=== PATIENT | male | born 1960 | race Hispanic/Latino ===

== ENCOUNTER 2019-12-19 | Emergency (ER) | payer SELFPAY ==
[2019-12-19] MEDS ORDERED: ZESTRIL40 MG PO (15:45)
[2019-12-19] MEDS ORDERED: METFORMIN500 MG PO (15:46)
[2019-12-19 16:32] LABS: HEMATOCRIT 43.6 % (39.0-50.0); HEMOGLOBIN 13.9 g/dl (14.0-18.0); IMMATURE GRANULOCYTES 0.2 % (0.0-5.0); MEAN CELL VOLUME 84.3 fL CALC (80.0-100.0); MEAN CORPUSCULAR HGB 26.9 pG CALC (26.0-32.0); MEAN CORPUSCULAR HGB CONC 31.9 g/L CALC (32.0-36.0); NEUT# 3.12 thou/uL (1.82-7.42); RED BLOOD COUNT 5.17 mill/uL (4.70-6.10); RED CELL DISTRI WIDTH 17.6 % (11.5-15.5)
[2019-12-19 16:55] LABS: ALKALINE PHOSPHATASE 140 u/l (38-126); BILIRUBIN, TOTAL 0.7 mg/dL (0.0-1.4); BUN 27 mg/dL (9-20); BUN/CREATININE RATIO 39 (12-20 (CALC)); CARBON DIOXIDE 20 mmol/l (22-30); CHLORIDE 103 mmol/l (95-108); CREATININE 0.7 mg/dL (0.7-1.3); GFR > 60 ML/MIN (>=60 (CALC)); GFR FOR AFR.AMER. > 60 ML/MIN (>=60 (CALC)); SGOT/AST 27 u/l (17-59); SODIUM 133 mmol/l (137-146); TOTAL PROTEIN 7.6 g/dL (6.3-8.2)
[2019-12-19 16:57] LABS: ANION GAP 16 (6-22 (CALC)); POTASSIUM 5.5 mmol/l (3.5-5.1)
[2019-12-19] MEDS ORDERED: CEPHALEXIN500 MG PO (17:13)
[2019-12-19] MEDS ORDERED: NAPROXEN500 MG PO (17:13)
== END 2019-12-19 17:49 | disposition home or self-care (01) | DRG 603 ==
PROVIDERS: Emergency Medicine
DX: L03.113 Cellulitis of right upper limb (principal); S00.83XA Contusion of other part of head, initial encounter; I10 Essential (primary) hypertension; E11.9 Type 2 diabetes mellitus without complications; F17.210 Nicotine dependence, cigarettes, uncomplicated; W11.XXXA Fall on and from ladder, initial encounter; Y92.009 Unspecified place in unspecified non-institutional (private) residence as the place of occurrence of the external cause; Z79.84 Long term (current) use of oral hypoglycemic drugs

== ENCOUNTER 2020-01-26 | Emergency (ER) | payer SELFPAY ==
[~2020-01-26] MED LIST: CEPHALEXIN500 MG PO; METFORMIN500 MG PO; NAPROXEN500 MG PO; ZESTRIL40 MG PO
[2020-01-26 18:12] LABS: HEMATOCRIT 39.7 % (39.0-50.0); HEMOGLOBIN 13.1 g/dl (14.0-18.0); IMMATURE GRANULOCYTES 0.3 % (0.0-5.0); MEAN CELL VOLUME 84.3 fL CALC (80.0-100.0); MEAN CORPUSCULAR HGB 27.8 pG CALC (26.0-32.0); NEUT# 3.47 thou/uL (1.82-7.42); RED BLOOD COUNT 4.71 mill/uL (4.70-6.10); RED CELL DISTRI WIDTH 17.2 % (11.5-15.5)
[2020-01-26 18:18] LABS: URINE BILIRUBIN - DIPSTICK NEGATIVE (NEGATIVE); URINE BLOOD DIPSTICK SMALL (NEGATIVE); URINE COLOR YELLOW; URINE GLUCOSE - DIPSTICK NEGATIVE (NEGATIVE); URINE KETONE NEGATIVE (NEGATIVE); URINE LEUK ESTERASE NEGATIVE (NEGATIVE); URINE NITRITE - DIPSTICK NEGATIVE (Negative); URINE PROTEIN - DIPSTICK 100 mg/dL (NEG-TRACE)
[2020-01-26 18:28] LABS: ALBUMIN 3.6 g/dL (3.2-5.0); ALKALINE PHOSPHATASE 154 u/l (38-126); ANION GAP 14 (6-22 (CALC)); BILIRUBIN, TOTAL 0.8 mg/dL (0.0-1.4); BUN 15 mg/dL (8-23); BUN/CREATININE RATIO 25 (12-20 (CALC)); CARBON DIOXIDE 24 mmol/l (22-30); CHLORIDE 101 mmol/l (95-108); CPK 40 u/l (52-200); CREATININE 0.6 mg/dL (0.7-1.3); GFR > 60 ML/MIN (>=60 (CALC)); GFR FOR AFR.AMER. > 60 ML/MIN (>=60 (CALC)); MAGNESIUM 1.8 mg/dL (1.6-2.3); POTASSIUM 4.6 mmol/l (3.5-5.1); SGOT/AST 30 u/l (19-48); SODIUM 135 mmol/l (137-146)
[2020-01-26 18:36] LABS: ACT PARTIAL THROMBO TIME 28.1 SECONDS (20.0-32.5); D-DIMER 0.83 mg/L (0.19-0.60); INTERNATIONAL NORMALIZED RATIO 1.4 RATIO (0.7-1.3); PROTHROMBIN TIME 14.2 SECONDS (9.0-12.5)
[2020-01-26 18:56] LABS: TSH, 3RD GENERATION 2.81 uIU/mL (0.47 - 4.68)
[2020-01-26] MEDS ORDERED: LASIX20 MG PO (19:17)
[2020-01-26] MEDS ORDERED: K-DUR/KLOR-CON20 MEQ PO (19:17)
== END 2020-01-26 19:51 | disposition home or self-care (01) | DRG 948 ==
PROVIDERS: Family Medicine
DX: R60.0 Localized edema (principal); I10 Essential (primary) hypertension; E11.9 Type 2 diabetes mellitus without complications; F17.210 Nicotine dependence, cigarettes, uncomplicated